=== PATIENT | female | born 1970 | race Caucasian/White ===

== ENCOUNTER 2023-04-29 07:20 | Outpatient (REF) | payer BC, SELFPAY ==
--- NOTE | ~2023-04-29 | MR_ITS ---
EXAMINATION: MRI OF THE LEFT FOOT WITHOUT CONTRAST CLINICAL INDICATION: Stress fracture 5th metatarsal. COMPARISON: None available. TECHNIQUE: Multiplanar MR imaging was obtained through the left foot without contrast material on a 1.5 Herminia magnet. FINDINGS: No fracture or malalignment. Marrow signal is normal. No periosteal or endosteal edema signal. Tarsometatarsal and MTP joints appear well preserved without appreciable cartilage loss. No joint effusions or synovitis. Lisfranc ligament appears intact. No other ligament tears. Tendons are intact without tendinosis or tenosynovitis. Musculature is normal in signal intensity without edema signal or atrophy. Plantar fascia is normal. No Mckeon's neuroma or adventitious bursitis. MR/MR foot LT wo con IMPRESSION: Normal MRI of the left foot. No evidence of stress reaction or stress fracture.
== END 2023-04-29 07:21 | disposition home or self-care (01) ==
LOC: HO.MRI 07:20
PROVIDERS: PCP Physician Assistant; Visit Provider Podiatrist
DX: M84.475A Pathological fracture, left foot, initial encounter for fracture (principal); S90.32XS Contusion of left foot, sequela
CPT/HCPCS: 73718

== ENCOUNTER → 2023-09-25 13:54 | Outpatient (BNVA) | payer OTHER, SELFPAY | PROVIDERS: PCP Physician Assistant; Visit Provider Physician Assistant | DX: Z13.89 Encounter for screening for other disorder (principal) | CPT/HCPCS: 73140; 99204 ==

== ENCOUNTER 2023-09-30 08:40 | Outpatient (REF) | payer OTHER, SELFPAY | END 2023-09-30 08:41 | disposition home or self-care (01) | LOC: HO.HOSX 08:40 | PROVIDERS: PCP Physician Assistant; Visit Provider Internal Medicine | DX: S62.661B Nondisplaced fracture of distal phalanx of left index finger, initial encounter for open fracture (principal); S69.92XA Unspecified injury of left wrist, hand and finger(s), initial encounter | CPT/HCPCS: 99202; 99213 ==

== ENCOUNTER 2023-09-30 12:39 | Outpatient (AMB) | payer OTHER, BC, SELFPAY ==
--- NOTE | 2023-09-30 12:47 | MHC.OFFVIS ---
Intake Vital Signs 09/30/23 12:51 Height 5 ft 2 in Weight 160 lb BMI 29.3 Intake Visit Reasons: TABLE TENDER SLUDGE-LT Index finger particle nail avulsion Intake Note: Nathaly 52 yr old left hand dominant female presents today for her left index finger injury. States on 09/25/23 while working she crushed her finger in the hinge part of a door. 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 Seen at work connection same day where xrays were taken and her finger was wrapped. States her nail is partially split. 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 She says she crushed her finger in the hinge side of a door. This is a work connections visit. She was seen at work connection the same day where her finger was dressed and Abx were prescribed. She complains of pain in her finger with any motion, and she says her finger is still bleeding as of this morning when her dressing was changed. She also says her nail is displaced, and particularly painful when she bumps it.. 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 Review of Systems Const All systems reviewed & are unremarkable except as noted in HPI and below Physical Exam Vital Signs: BMI result Body Mass Index 29.3 Const General: cooperative, healthy appearing and no acute distress Orientation/consciousness: patient oriented x3 HEENT Head: Yes normocephalic and Yes atraumatic Eyes EOM: EOMs intact bilaterally Resp Effort & Inspection: normal respiratory effort and able to speak in complete sentences Cardio Jugular venous distension: no JVD Skin General skin exam: turgor normal Rashes: no rashes Neuro General: patient oriented x3 Extrem Other: Evaluation of Left Upper Extremity: The patient is alert, oriented, and in no acute distress Neuro: Median, Ulnar, Radial nerves motor and sensory intact and sensation is normal to the tips of all digits Vascular: Cap refill brisk ROM: She had some stiffness after wearing a splint, but before leaving clinic she could actively flex and extend her index finger at the MCP & DIP joints She is wearing gel nails on all fingers, including the index finger Nail malpositioned, sitting superficial to the eponycheal fold and slightly oblique from what it should be Some swelling Some dried blood around nailbed Radiographs: 3 views of the left hand, with attention to the index finger, were taken and viewed by me today in clinic. They show an index finger distal phalanx fracture, non-displaced, through the tuft and best seen on the lateral view Psych Appearance: grossly normal Affect: normal affect Attitude: cooperative Assessment & Plan Assessment & Plan (1) Nondisplaced fracture of distal phalanx of left index finger, initial encounter for open fracture: Code(s): S62.661B - Nondisplaced fracture of distal phalanx of left index finger, initial encounter for open fracture (2) Injury of nail bed of finger of left hand: Code(s): S69.92XA - Unspecified injury of left wrist, hand and finger(s), initial encounter Plan Assessment & Plan: 1. Left index finger distal phalanx tuft fracture, open & non-displaced 2. Left index finger nailbed injury From a crush injury, DOI: 09/25/23 This is a work-related injury. I educated her about these conditions I discussed the importance of continuing her antibiotics as prescribed I discussed operative and non-operative treatment options and recommend surgery. The patient would like to proceed with surgery She will work on ROM exercises at home The risks and benefits of operative treatment were discussed with the patient and the patient wishes to proceed with surgery. These risks include, but are not limited to risk of damage to blood vessels, nerves, tendons, infection, recurrence, incomplete relief of preoperative symptoms, persistent pain, possible need for further surgery and the risks associated with regional blocks and anesthesia. The plan is to take the patient to the operating room sometime on 10/01/23 for the following procedures: 1. Left index finger removal of nail plate, under local 2. left index finger possible open fracture I&D, under local 3. left index finger nailbed repair, under local All of the preoperative paperwork including the consent was reviewed today. All the patient's questions were answered. The patient understands that they will be contacted by our neurological surgery teacher soon to schedule this procedure She denies Diabetes, blood thinners, asthma, heart, lung, kidney issues Scribed for Leydi Diaz MD by Dk Diaz, durable medical equipment technician, on 09/30/23 at 1:35 PM, EST. Orders: Orders XR hand LT min 3V Today M79.642 - Pain in left hand Coding Level of Care Code New Pt Level 4 (85810) Diagnoses Nondisplaced fracture of distal phalanx of left index finger, initial encounter for open fracture S62.661B Injury of nail bed of finger of left hand S69.92XA
[2023-09-30 12:51] VITALS: BMI 29.3
== END 2023-09-30 14:04 | disposition home or self-care (01) ==
PROVIDERS: PCP Physician Assistant; Visit Provider Orthopaedic Surgery
DX: S62.661B Nondisplaced fracture of distal phalanx of left index finger, initial encounter for open fracture (principal); S69.92XA Unspecified injury of left wrist, hand and finger(s), initial encounter
CPT/HCPCS: 99204

== ENCOUNTER 2023-10-01 11:01 | Day surgery (SDC) | payer OTHER, BC, SELFPAY ==
--- NOTE | 2023-10-01 10:58 | MHC.SHP ---
Pre-Procedural Eval Section A - 24 Hr Update-Section A only Date of Service: 10/01/23 The patient is an INPATIENT: No Changes since office visit: No Cold of Flu in the past 2 weeks, No New Medical Problems, No Changes in Medication and No Patient answered all questions The patient has been examined within 24 hours of the surgical procedure. The History & Physical has been completed within 30 days and I have reviewed it.: Yes Section B - Complete if H&P > 30 days Chief Complaint: Unspecified injury of left wrist, hand and finger( Allergies: Allergies Allergy/AdvReac Type Severity Reaction Status Date / Time sulfamethoxazole Allergy Intermediate hives Verified 09/30/23 12:52 [From Bactrim] trimethoprim [From Bactrim] Allergy Intermediate hives Verified 09/30/23 12:52 Plan I have reviewed the history and physical and performed a pertinent physical examination on my patient. No changes have occurred unless specified. Time Spent With Patient Time: Total time managing care of this patient today ____ minutes.
--- NOTE | 2023-10-01 10:59 | P.OP_ITS ---
Operative Note Operative Note Date of Service: 10/01/23 Narrative: Operative Note Preop diagnosis: 1. Left index finger open distal phalanx fracture 2. Left index finger nail bed injury Postop diagnosis: same Procedure: 1. Left index finger I&D open distal phalanx fracture 2. Left index finger removal of nail plate 3. Left index finger repair of nail bed Surgeon: Leydi Diaz MD Anesthesia: digital block using 1% lidocaine with epinephrine Findings: The distal half of the nail bed was sheared off of the distal phalanx, hanging by a small pedicle on the radial aspect of the nail bed. The proximal half of the nail bed including the germinal matrix appeared to be in good condition. The wound and fracture site appeared to be clean and without evidence of infection or debris. EBL: Less than 5 mL Tourniquet time: None Specimens: None Complications: None Disposition: Brought to recovery room in stable condition Plan: The patient can remove the dressing in 4-5 days and perform daily wound care. She knows not to immerse her finger. Continue oral antibiotics. Follow-up for 7-10 days for wound check . The sutures are absorbable, but can be removed if loose at 10-14 days. Radiographs are okay at 2nd postop. Indications: The patient is 52 years old, with a left index finger distal phalanx open fracture with a nail bed injury sustained after getting her finger caught in a door . The risks and benefits of operative treatment including but not limited to risk of damage to blood vessels, nerves, tendons, infection, persistent pain, persistent symptoms, recurrence or possible need for additional surgery were discussed with the patient and the patient wishes to proceed with surgery. Procedure: Once consent was obtained a digital block was performed in the preop area using a combination of 1% lidocaine with epinephrine. The patient was then brought back to the operating suite and placed on the operative table in supine position. A tourniquet was applied to the proximal aspect of the left upper extremity and the limb was prepped and draped in a standard surgical fashion. A small finger tourniquet was applied to the base of the finger and removed in fewer than 30 minutes. Once assured that we had a good block, the nail plate was removed by using a [place] elevator to separate the nail plate from the underlying nail bed. It was placed on the back table. This then allowed us to evaluate our nail bed injury and access to the open distal phalanx fracture. The distal half of the nail bed was sheared off from the bone hanging by a radial sided pedicle. This did expose the bone of the distal phalanx and our fracture. The wound and fracture appeared clean with no purulence or debris. An I&D was then performed on are open fracture. A small curette was used to debride the bone edges and the bone was copiously irrigated with normal saline. I then reapproximated the distal aspect of the nail bed sterile matrix. I repaired the nail bed using some 5 0 chromic suture. At this point the finger tourniquet was removed and hemostasis obtained with a brief period of local pressure. The wound was again copiously irrigated with normal saline. A small amount of antibiotic ointment was placed on the nail bed and a sterile dressing was applied. The patient appears to have tolerated the procedure well and with no complications. All digits were well vascularized at the conclusion of the case.
[2023-10-01 11:54] VITALS: BMI 29.3
[2023-10-01 13:46] VITALS: BP 146/79; PULSE 92; RESP 20; O2SAT 100
== END 2023-10-01 14:37 | disposition home or self-care (01) ==
PROVIDERS: PCP Physician Assistant; Visit Provider Orthopaedic Surgery
PROC: (CPT 11012; principal; 2023-10-01 12:30)
DX: S62.661B Nondisplaced fracture of distal phalanx of left index finger, initial encounter for open fracture (principal); S69.92XA Unspecified injury of left wrist, hand and finger(s), initial encounter; M79.89 Other specified soft tissue disorders; W23.1XXA Caught, crushed, jammed, or pinched between stationary objects, initial encounter; Y93.89 Activity, other specified; Y92.69 Other specified industrial and construction area as the place of occurrence of the external cause; Y99.0 Civilian activity done for income or pay
CPT/HCPCS: 11012; 11760; 11730; J0171

== ENCOUNTER → 2023-10-01 11:01 | Outpatient (BNV) | payer OTHER, BC, SELFPAY | PROVIDERS: PCP Physician Assistant; Visit Provider Orthopaedic Surgery | DX: S62.631B Displaced fracture of distal phalanx of left index finger, initial encounter for open fracture (principal); S60.122A Contusion of left index finger with damage to nail, initial encounter | CPT/HCPCS: 11730; 11760; 26765 ==

== ENCOUNTER 2023-10-13 10:23 | Outpatient (AMB) | payer BC, OTHER, SELFPAY ==
[2023-10-13 10:28] VITALS: BMI 29.3
--- NOTE | 2023-10-13 10:28 | A.OFFVIS_ITS ---
Intake Vital Signs 10/13/23 10:28 Height 5 ft 2 in Weight 160 lb BMI 29.3 Intake Visit Reasons: PO LT IF Nail plate removal 10/01/23 AR Intake Note: Nathaly 52 yr old female presents today for her PO visit for her left IF Nail plate removal 10/01/[address] Diaz. Dressing removed and in office. Patient states she has mild discomfort. 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 This was due to a crush injury while at work, DOI: 09/25/23. She says she crushed her finger in the hinge side of a door. This is a work connections visit. She says she is doing well, with mild pain & discomfort. 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 Dissolvable sutures are in place. The flap of tissue over the distal nailbed appears to be healing well & is pink She can make a fist and extend all her digits, with mild stiffness in the PIP joint Sensation is intact Cap refill is brisk Psych Appearance: grossly normal Affect: normal affect Attitude: cooperative Assessment & Plan Assessment & Plan (1) Nondisplaced fracture of distal phalanx of left index finger, initial encounter for open fracture: Code(s): S62.661B - Nondisplaced fracture of distal phalanx of left index finger, initial encounter for open fracture (2) Injury of nail bed of finger of left hand: Code(s): S69.92XA - Unspecified injury of left wrist, hand and finger(s), initial encounter Plan Assessment & Plan: 1. Left index finger distal phalanx tuft fracture, S/P I&D 2. Left index finger nailbed injury, S/P removal of nail plate & repair of nail bed DOS: 10/01/23 From a crush injury in a door, DOI: 09/25/23 This is a work-related injury. The patient appears to be doing well post-operatively I educated her about the post-operative course. She has been performing dressing changes at home & has dissolvable sutures in place I explained the signs and symptoms of infection, if the patient develops any new or worsening erythema, drainage, pain, or warmth they should contact the clinic or attend the ED. She will keep her finger covered with a dressing while at work for the next week. She can leave this uncovered at home as long as she keeps this away from her dog to remain clean. I discussed activity modifications, she is to lift nothing heavier than a cellphone for the next 2 weeks She will perform gentle ROM exercises at home She should avoid any underwater activities at this time She should gently massage about the incision site to reduce the risk of hypersensitivity She will follow up in 4-6 weeks for a ROM check. No X-rays unless she has pain Scribed for Leydi Diaz MD by Dk Diaz emergency medical technician, on 10/13/23 at 10:34 AM, EST. Coding Level of Care Code Global (93381) Diagnoses Nondisplaced fracture of distal phalanx of left index finger, initial encounter for open fracture S62.661B Injury of nail bed of finger of left hand S69.92XA
== END 2023-10-13 10:54 | disposition home or self-care (01) ==
PROVIDERS: PCP Physician Assistant; Visit Provider Orthopaedic Surgery
DX: S62.661B Nondisplaced fracture of distal phalanx of left index finger, initial encounter for open fracture (principal); S69.92XA Unspecified injury of left wrist, hand and finger(s), initial encounter
CPT/HCPCS: 99024

== ENCOUNTER → 2023-10-16 08:39 | Outpatient (BNVA) | payer OTHER, SELFPAY | PROVIDERS: PCP Physician Assistant; Visit Provider Internal Medicine | DX: Z13.89 Encounter for screening for other disorder (principal) | CPT/HCPCS: 99213 ==

== ENCOUNTER 2023-10-28 10:41 | Outpatient (AMB) | payer OTHER, SELFPAY ==
[2023-10-28 11:18] VITALS: BMI 29.3
--- NOTE | 2023-10-28 11:18 | A.OFFVIS_ITS ---
Intake Vital Signs 10/28/23 11:18 Height 5 ft 2 in Weight 160 lb BMI 29.3 Intake Visit Reasons: P/O Left IF Nail plate removal 10/01/23 AR Intake Note: Nathaly 52 yr old female presents today for her PO visit for her left IF Nail plate removal 10/01/[address] Diaz. States her dissolvable stitches are poking out and getting caught on her clothes. 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 This was due to a crush injury while at work, DOI: 09/25/23. She says she crushed her finger in the hinge side of a door. This is a work connections visit. She says she is doing well. She is concerned her absorbable nail bed sutures are pulling and causing her pain. She is wondering if we can remove her sutures. She says she continues to have numbness in the tip of her index finger. 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 Dissolvable sutures removed today The flap of tissue over the distal nailbed appears to be healing well & is pink She can make a fist and extend all her digits, with mild stiffness in the PIP joint Some numbness in the tip of her index finger Cap refill is brisk Psych Appearance: grossly normal Affect: normal affect Attitude: cooperative Assessment & Plan Assessment & Plan (1) Nondisplaced fracture of distal phalanx of left index finger, initial encounter for open fracture: Code(s): S62.661B - Nondisplaced fracture of distal phalanx of left index finger, initial encounter for open fracture (2) Injury of nail bed of finger of left hand: Code(s): S69.92XA - Unspecified injury of left wrist, hand and finger(s), initial encounter Plan Assessment & Plan: 1. Left index finger distal phalanx tuft fracture, S/P I&D 2. Left index finger nailbed injury, S/P removal of nail plate & repair of nail bed DOS: 10/01/23 From a crush injury in a door, DOI: 09/25/23 This is a work-related injury. The patient appears to be doing well post-operatively I educated her about the post-operative course. She has been performing dressing changes at home. I discussed activity modifications, she is to lift nothing heavier than a cellphone for the next 2 weeks She will perform gentle ROM exercises at home She should avoid any underwater activities at this time She should gently massage about the incision site to reduce the risk of hypersensitivity She will follow up in 3-4 weeks for a wound ROM check. I may get x-rays if we do not have good healing over the tip of the finger. Scribed for Leydi Diaz MD by Dk Diaz, er medical technician, on 10/28/23 at 11:20 AM, EST. Coding Level of Care Code Global (59086) Diagnoses Nondisplaced fracture of distal phalanx of left index finger, initial encounter for open fracture S62.661B Injury of nail bed of finger of left hand S69.92XA
== END 2023-10-28 11:32 | disposition home or self-care (01) ==
PROVIDERS: PCP Physician Assistant; Visit Provider Orthopaedic Surgery
DX: S62.661B Nondisplaced fracture of distal phalanx of left index finger, initial encounter for open fracture (principal); S69.92XA Unspecified injury of left wrist, hand and finger(s), initial encounter
CPT/HCPCS: 99024

== ENCOUNTER → 2023-10-28 10:54 | Outpatient (BNVA) | payer OTHER, SELFPAY | PROVIDERS: PCP Physician Assistant; Visit Provider Orthopaedic Surgery | DX: S62.661D Nondisplaced fracture of distal phalanx of left index finger, subsequent encounter for fracture with routine healing (principal); S69.92XD Unspecified injury of left wrist, hand and finger(s), subsequent encounter | CPT/HCPCS: 99212 ==

== ENCOUNTER 2023-11-03 20:15 | Emergency (ER) | payer BC, SELFPAY ==
--- NOTE | 2023-11-03 | ECG_ITS ---
Test Reason : TACHYCARDIA Blood Pressure : / mmHG Vent. Rate : 136 BPM Atrial Rate : 136 BPM P-R Int : 124 ms QRS Dur : 082 ms QT Int : 288 ms P-R-T Axes : 052 031 046 degrees QTc Int : 433 ms Sinus tachycardia Possible Left atrial enlargement Low voltage QRS Borderline ECG No previous ECGs available Referred By: Generic ED Physician Electronically Signed By:Isauro Pina
--- NOTE | ~2023-11-03 | XR_ITS ---
EXAMINATION: XR CHEST CLINICAL INFORMATION: Cough. Tachycardia. COMPARISON: None available. TECHNIQUE: Frontal view of the chest was obtained. FINDINGS: Heart size is normal. The lungs are clear. No pleural effusion. No pneumothorax. No acute osseous abnormality. XR/XR chest 1V IMPRESSION: No acute cardiopulmonary disease.
[2023-11-03 20:24] VITALS: BP 157/94; PULSE 145; RESP 18; TEMP 36.7; O2SAT 94; BMI 29.3
[2023-11-03 20:48] LABS: MANUAL DIFF FLAG NO
[2023-11-03 20:57] LABS: Basophils Percent Auto 0.2 % (0-2); Eosinophils Absolute Auto 0.1 X10*3/uL (0.0-0.4); Eosinophils Percent Auto 1.9 % (0-4); Hematocrit 38.4 % (37.0-47.0); Imm Gran Abs Auto 0.01 X10*3/uL (0.00-0.03); Imm Gran Pct Auto 0.2 % (0.0-0.4); Lymphocytes Absolute Auto 1.5 X10*3/uL (1.2-4.9); Lymphocytes Percent Auto 24.3 % (20-40); Mean Corpuscular HGB Conc 36.5 g/dl (31.0-35.0); Mean Corpuscular Hemoglobin 31.8 pg (27.0-33.0); Mean Corpuscular Volume 87.3 fL (80.0-98.0); Mean Platelet Volume 10.4 fL (9.4-12.3); Monocytes Absolute Auto 0.9 X10*3/uL (0.1-1.2); Monocytes Percent Auto 13.7 % (2-11); Neutrophils Absolute Auto 3.7 x10*3/uL (2.0-8.3); Neutrophils Percent Auto 59.7 % (45-73); Platelet Count 252 X10*3/uL (160-400); Red Cell Distribution Width 12.6 % (11.0-16.0); White Blood Count 6.3 X10*3/uL (4.8-10.8)
[2023-11-03 21:02] LABS: Alanine Aminotransferase 17 U/L (0-31); Albumin Level 3.5 g/dL (3.5-5.0); Alkaline Phosphatase 54 U/L (39-117); Anion Gap 12 (12-20); Aspartate Amino Transferase 16 U/L (5-31); Bilirubin Total 0.7 mg/dL (0.0-1.0); Blood Urea Nitrogen 10 mg/dL (9-16); Calcium 8.8 mg/dL (8.4-10.2); Carbon Dioxide 25 mmol/L (22-29); Chloride 107 mmol/L (96-108); Creatinine Clr Calc Pharmacy 86.9; Estimated Glomerular Filt Rate > 60; Glucose Random 126 mg/dL (60-115); Potassium 3.3 mmol/L (3.3-5.1); Sodium 141 mmol/L (135-145); Total Protein 6.9 g/dL (6.5-8.0)
[2023-11-03 21:10] LABS: Troponin-I High Sensitivity < 2.7 ng/L (<3.5-17.0)
[2023-11-03 21:16] LABS: Influenza A PCR POSITIVE (Negative); Influenza B PCR NEGATIVE (Negative); Resp Syncy Virus RNA Qual PCR NEGATIVE (Negative); SARS COV2 PCR INHOUSE NEGATIVE (Negative)
[2023-11-03] MEDS: Ibuprofen 400 MG TABLET PO (21:16)
[2023-11-03] MEDS: Acetaminophen 325 MG TABLET 975 MG PO (21:16)
[2023-11-03 21:19] VITALS: PULSE 129; PULSE 130; RESP 22; O2SAT 96
--- NOTE | 2023-11-03 21:21 | PC.NURSE ---
pt resting on stretcher, respirations even and mildly labored (RR 22), pt is otherwise resting in no apparent distress. Sinus tach on monitor in 120s-130s. Pt does endorse mild palpitations. Pt also endorses mild shortness of breath upon exertion. Pt is otherwise stable, ambulatory, alert and oriented x4
--- NOTE | 2023-11-03 21:29 | ED.URI ---
HPI - URI/Sore Throat General Chief Complaint: Upper Respiratory Symptoms Stated Complaint: flu? heart rate 160 Time Seen by Provider: 11/03/23 21:05 Source: patient Mode of arrival: ambulatory History of Present Illness HPI Narrative: 52-year-old female, prior smoker, presents with flu-like symptoms since Thursday with high fevers, shortness of breath on exertion, dry cough, palpitations and noticing that she had a racing heart earlier today and that her heart rate was registering 150s to 160s on her smart watch. Patient reports low-grade fevers today. Related Data Home Medications Medication Instructions Recorded Confirmed lisinopril 5 mg tablet 5 mg PO DAILY 09/30/23 10/01/23 lorazepam 0.5 mg tablet 0.5 mg PO DAILY PRN Anxiety 09/30/23 10/01/23 Allergies Allergy/AdvReac Type Severity Reaction Status Date / Time sulfamethoxazole Allergy Intermediate hives Verified 11/03/23 20:35 [From Bactrim] trimethoprim [From Bactrim] Allergy Intermediate hives Verified 11/03/23 20:35 Review of Systems Review of Systems: Pertinent positives and negatives as stated in HPI PMFSH Past Medical History Source: nursing notes reviewed Medical History Lipoma HTN (hypertension) Surgical History History of appendectomy H/O adenoidectomy Hx of tonsillectomy Social History Social History Smoked in Last 30 Days: No Use of substances other than those prescribed or required for medical reasons: No Patient : No 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 GENERAL: Well developed, well nourished, in no acute distress. HEAD: Normocephalic/atraumatic EYES: PERRLA, EOMI EARS: Ext canals without abnormality, TMs non-bulging and non-erythematous NOSE: Nares patent bilateral OROPHARYNX: no oral lesions noted, posterior pharynx clear and non-erythematous without noted tonsillar enlargement/erythema/exudates NECK: Supple, no adenopathy LUNGS: Normal breath sounds. No adventitious sounds or accessory muscle use. SpO2<96> CARDIOVASCULAR: Regular rate and rhythm without noted murmurs ABDOMEN: Soft, non-tender, non-distended with bowel sounds. MUSCULOSKELETAL: No tenderness, deformities, or effusions noted on gross inspection. EXTREMITIES: No cyanosis, clubbing or edema. SKIN: Inspection of the skin reveals no rashes NEUROLOGIC: Alert and oriented x 4. Strength and sensation to light touch were grossly intact x 4. Medications Administered Discontinued Medications Generic Name Dose Route Start Last Admin Trade Name Freq PRN Reason Stop Dose Admin Acetaminophen 975 mg 11/03/23 21:07 11/03/23 21:16 Acetaminophen 325 Mg Tablet PO 11/03/23 21:08 975 mg ONCE ONE Administration Ibuprofen 400 mg 11/03/23 21:07 11/03/23 21:16 Ibuprofen 400 Mg Tablet PO 11/03/23 21:08 400 mg ONCE ONE Administration Medical Decision Making Medical Decision Making [facility] Narrative: 52-year-old female with history and clinical presentation, DDX: Viral syndrome, suspect COVID or influenza, suspect that tachycardic heart rate is more related to components of poor oral intake and elevated temperature. I reviewed all investigations and hematologic indices are negative for leukocytosis/left shift/anemia/thrombocytopenia. Chemistry indices are negative for SIERRA/electrolyte/liver enzyme derangements, high sensitivity troponin is undetectable and there is no indication of ischemic changes. Viral testing positive for influenza and otherwise negative for RSV/COVID-19. Chest x-ray is negative for infiltrate or venous congestion otherwise my interpretation is in agreement with radiology's impression. All results and findings discussed with the patient at bedside, she was also offered combination Tylenol/ibuprofen for suspected underlying contribution of fever to the heart rate. Differential Diagnosis Differential Diagnoses: The differential diagnosis associated with the presentation includes Please see the discussion above Admission/Observation Consideration of admission/observation: Escalation of care including admission/observation considered Please see the discussion above Lab Data [facility] Lab Attestation statement: I reviewed the patient's lab results. Please see the discussion above 11/03/23 20:43 11/03/23 20:43 Labs: Lab Results 11/03/23 11/03/23 11/03/23 Range/Units 20:34 20:43 20:44 WBC 6.3 (4.8-10.8) X10*3/uL RBC 4.40 (4.20-5.50) X10*6/uL Hgb 14.0 (12.0-16.0) g/dl Hct 38.4 (37.0-47.0) % MCV 87.3 (80.0-98.0) fL MCH 31.8 (27.0-33.0) pg MCHC 36.5 H (31.0-35.0) g/dl RDW 12.6 (11.0-16.0) % Plt Count 252 (160-400) X10*3/uL MPV 10.4 (9.4-12.3) fL Immature Gran % (Auto) 0.2 (0.0-0.4) % Neut % (Auto) 59.7 (45-73) % Lymph % (Auto) 24.3 (20-40) % [place] % (Auto) 13.7 H (2-11) % Eos % (Auto) 1.9 (0-4) % Baso % (Auto) 0.2 (0-2) % Lymph # (Auto) 1.5 (1.2-4.9) X10*3/uL [place] # (Auto) 0.9 (0.1-1.2) X10*3/uL Eos # (Auto) 0.1 (0.0-0.4) X10*3/uL Baso # (Auto) 0.0 (0.0-0.2) X10*3/uL Abs Immat Gran (auto) 0.01 (0.00-0.03) X10*3/uL Absolute Neuts (auto) 3.7 (2.0-8.3) x10*3/uL Absolute Nucleated RBC 0.000 (0.0-0.012) X10*3/uL Nucleated RBC % (auto) 0.0 (0.0-0.2) /100WBC Sodium 141 (135-145) mmol/L Potassium 3.3 (3.3-5.1) mmol/L Chloride 107 (96-108) mmol/L Carbon Dioxide 25 (22-29) mmol/L Anion Gap 12 (12-20) BUN 10 (9-16) mg/dL Creatinine 0.69 (0.5-1.4) mg/dL Estim Creat Clear Calc 86.9 Estimated GFR > 60 Random Glucose 126 H (60-115) mg/dL Calcium 8.8 (8.4-10.2) mg/dL Total Bilirubin 0.7 (0.0-1.0) mg/dL AST 16 (5-31) U/L ALT 17 (0-31) U/L Alkaline Phosphatase 54 (39-117) U/L Troponin I High Sens < 2.7 (<3.5-17.0) ng/L Total Protein 6.9 (6.5-8.0) g/dL Albumin 3.5 (3.5-5.0) g/dL Influenza Type A (PCR) POSITIVE A (Negative) Influenza Type B (PCR) NEGATIVE (Negative) RSV RNA Qual (PCR) NEGATIVE (Negative) SARS-CoV-2 RNA (RT-PCR) NEGATIVE (Negative) Independent Interpretation I performed an independent interpretation of an: EKG Interpretation: Sinus tachycardia, HR-136, no STEMI, CA/QRS/QTC is within normal limits. Radiology Impression Discussion of test interpretation with radiology: I have reviewed the radiologist's reading. Radiologist Impression: Please see the discussion above External Record Review External record reviewed: Outpatient record, Prior outpatient labs and Prior outpatient radiology Chronic Conditions Patient?s care impacted by: Hypertension Critical Care Time Critical Care Time Critical Care Time: Yes Total Critical Care Time: 30 Attestation: I personally attest to this time spent taking care of the patient. Discharge Plan Discharge Clinical Impression: Viral infection, Influenza A Instructions: Viral Syndrome (ED), Influenza (DC) Additional Instructions: 1. Resume all home medications as prescribed. I recommend [id number] Tylenol/ibuprofen as needed body aches/headaches/temperatures greater than 100.4. Continue to drink plenty of water. 2. I recommend that you avoid decongestants as these have medications which will increase your heart rate. Sleeping in semi elevated position to reduce nighttime coughing. 3. Follow-up with your primary care doctor the next 2-3 days. Return to the ER for any worsening symptoms. Prescriptions: No Action lisinopril 5 mg tablet 5 mg PO DAILY lorazepam 0.5 mg tablet 0.5 mg PO DAILY PRN (Reason: Anxiety) Referrals: Sophia Tobias PA-C [Primary Care Provider] -
[2023-11-03 22:02] VITALS: BP 134/82; PULSE 119; RESP 18; TEMP 37.2; O2SAT 99
== END 2023-11-03 22:05 | disposition home or self-care (01) ==
PROVIDERS: Emergency Provider Student in an Organized Health Care Education/Training Program; PCP Physician Assistant
DX: J10.1 Influenza due to other identified influenza virus with other respiratory manifestations (principal); B34.9 Viral infection, unspecified; R00.0 Tachycardia, unspecified; R50.9 Fever, unspecified; R06.02 Shortness of breath; Z11.52 Encounter for screening for COVID-19; Z20.822 Contact with and (suspected) exposure to COVID-19; Z79.899 Other long term (current) drug therapy
CPT/HCPCS: 0241U; 36415; 71045; 80053; 84484; 85025; 93005; 99283; 99285

== ENCOUNTER → 2023-11-03 20:22 | Outpatient (BNV) | payer BC, SELFPAY | PROVIDERS: Emergency Provider Student in an Organized Health Care Education/Training Program; PCP Physician Assistant; Visit Provider Internal Medicine Cardiovascular Disease | DX: R00.0 Tachycardia, unspecified (principal) | CPT/HCPCS: 93010 ==

== ENCOUNTER 2023-11-17 14:37 | Outpatient (AMB) | payer BC, OTHER, SELFPAY ==
--- NOTE | 2023-11-17 14:39 | A.OFFVIS_ITS ---
Intake Vital Signs 11/17/23 14:40 Height 5 ft 2 in Weight 160 lb BMI 29.3 Intake Visit Reasons: PO - Left IF Nail plate removal 10/01/23 AR Intake Note: Nathaly 52 yr old female presents today for her PO visit for her Left IF Nail plate removal ROM and wound check from 10/01/23 AR. Patient states she is doing better but still has numbness from her DIP to tip of finger. 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 This was due to a crush injury while at work, DOI: 09/25/23. She says she crushed her finger in the hinge side of a door. This is a work connections visit. She says she is doing well and is pleased with the appearance of her thumb. She says she continues to have some numbness in the tip of her index finger.. 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 Her nail appears to be growing in well Some numbness in the tip of her index finger Cap refill is brisk Psych Appearance: grossly normal Affect: normal affect Attitude: cooperative Assessment & Plan Assessment & Plan (1) Nondisplaced fracture of distal phalanx of left index finger, initial encounter for open fracture: Code(s): S62.661B - Nondisplaced fracture of distal phalanx of left index finger, initial encounter for open fracture (2) Injury of nail bed of finger of left hand: Code(s): S69.92XA - Unspecified injury of left wrist, hand and finger(s), initial encounter Plan Assessment & Plan: 1. Left index finger open distal phalanx tuft fracture, S/P I&D 2. Left index finger nailbed injury, S/P removal of nail plate & repair of nail bed DOS: 10/01/23 From a crush injury in a door, DOI: 09/25/23 This is a work-related injury. The patient appears to be doing well post-operatively She may now advance all activities as tolerated. She will continue to perform gentle ROM exercises at home She should gently massage about the incision site to reduce the risk of hypersensitivity She is very pleased with the results of her surgery. She will follow up prn Scribed for Leydi Diaz MD by Dk Diaz, rn medical surgical, on 11/17/23 at 3:00 PM, EST. Coding Level of Care Code Global (72798) Diagnoses Nondisplaced fracture of distal phalanx of left index finger, initial encounter for open fracture S62.661B Injury of nail bed of finger of left hand S69.92XA
[2023-11-17 14:40] VITALS: BMI 29.3
== END 2023-11-17 15:17 | disposition home or self-care (01) ==
PROVIDERS: PCP Physician Assistant; Visit Provider Orthopaedic Surgery
DX: S62.661B Nondisplaced fracture of distal phalanx of left index finger, initial encounter for open fracture (principal); S69.92XA Unspecified injury of left wrist, hand and finger(s), initial encounter
CPT/HCPCS: 99024

== ENCOUNTER 2024-01-14 08:19 | Outpatient (AMB) | payer BC, SELFPAY ==
--- NOTE | 2024-01-14 08:23 | A.OFFPC_ITS ---
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 Needs referral to account contact associate. Holter monitor done on 12/15/23. Echo in March. Allergies sulfamethoxazole [From Bactrim] Allergy (Intermediate, Verified 11/17/23 14:46) hives trimethoprim [From Bactrim] Allergy (Intermediate, Verified 11/17/23 14:46) hives Medication List - Last Reconciled 01/14/24 by Sophia Tobias PA-C lorazepam 0.5 mg PO DAILY PRN metoprolol succinate ER 12.5 mg PO DAILY Tobacco use date assessed: 01/14/24 Dental Screening Dental Screen Date: 01/14/24 Did you have a dental visit in the last 12 months?: Yes Did you have a dental problem in the last 6 months where you did not have access to dental care?: No Was dental information given to patient?: Patient has dentist HPI encoding clerk/ heart palpitation cardiac doc see pcp first HPI Details Patient is a 53-year-old female who presents today to reestablish care/follow up. She was seen by myself on 10/20/2023 for a physical. She has a significant past medical history of an angiolipoma of kidney, simple cyst of kidney, anxiety, hyperlipidemia, hypertension, palpitations, SVT. CV: Blood pressure today in the office is 104/72. Her pulse is 129. She has been experiencing palpitations for the last few months. When I saw her for her physical I did order a Holter, echo and labs. She was able to complete her Holter on 12/14 and had a follow up with my colleague on 01/03 and did have 1 5 beat run of PSVT. She was started on 12.5 mg of metoprolol. It was recommended that she follow with cardiology. She states that she is constantly experiencing a high heart rate at all times of day and night. She states it is making her nervous. She feels a little shaky and she has lost weight because she is under increased stress with this. She states it is flaring her anxiety a little. She has a decreased appetite and states she lost 20 lbs in the last few months with this. She thinks it is related to stress. She denies any n/v/d. No abdominal pain or bloating. UTD on health maintenance. She has cut out caffeine. She has made small diet changes to see if it could help with the SVT and it hasn't. She does wonder if it is related to being perimenopausal. She does sometimes feel short of breath with exertion in the SVT. States that her heart rate goes up without doing much. No dizziness or diaphoresis. No chest pain. Her echo is scheduled for March. HEENT: She does complain today of ongoing sinusitis. This has been going on since she had the flu in October. She states that she has had this intermittent sinus pain and pressure. She was treated a couple times for a sinus infection and it did seem like it initially cleared it but then the symptoms would return. She does currently have slight sinus pressure but no pain. She reports constant postnasal drip and a cough. She states that she has had this cough on and off since October. States it almost feels like she has to clear her throat. It also started around the same time that she started lisinopril for her blood pressure. Denies any wheezing. At times feels short of breath with the SVT. Uro: She has a significant past medical history of an angiolipoma of her kidney and a simple cyst. Scheduled with Urology on 01/24. Psych: Currently a little exacerbated. Generally it is well-controlled with her lifestyle and every couple years she will get a prescription of lorazepam to use as needed. No SI/HI. 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 They have 2 adult children. Colonoscopy: Up-to-date, 2 polyps in 2021, due in 2026 Mammo: December 2023 Pap: [facility]. Sees Gelaence Gabriel. She is perimenopausal. [facility] Medical History (Updated 01/14/24 @ 09:40 by Sophia Tobias PA-C) Nondisplaced fracture of distal phalanx of left index finger, initial encounter for open fracture Injury of nail bed of finger of left hand PSVT (paroxysmal supraventricular tachycardia) Abnormal skin growth Eczema Arthritis Hypercholesteremia Sinusitis Simple cyst of kidney Generalized anxiety disorder Angiolipoma Lipoma HTN (hypertension) Surgical History History of appendectomy H/O adenoidectomy Hx of tonsillectomy Family History (Updated 01/14/24 @ 08:54 by Lianet Jeter CMA) Father Arthritis HTN (hypertension) Mother Hypercholesteremia Brother Hypercholesteremia HTN (hypertension) Sister Heart disease Multiple sclerosis Maternal Grandmother Breast cancer Diabetes Heart disease Maternal Grandfather Diabetes Hypercholesteremia Alcoholism Other FH: mental illness Social History Housing: House Patient Tobacco Use Status: Former Tobacco user Cigarette Packs Per Day: 0.5 Years Smoked: 20 e-Cigarette/Vaping Use: Never Used Second Hand Smoke Exposure: Yes (past) service: No Current occupational status: employed 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 1. Little interest or pleasure in doing things: not at all 2. Feeling down, depressed, or hopeless: not at all 3. Trouble falling or staying asleep, or sleeping too much: more than half the days 4. Feeling tired or having little energy: more than half the days 5. Poor appetite or overeating: several days 6. Feeling bad about yourself - or that you are a failure or have let yourself or your family down: not at all 7. Trouble concentrating on things, such as reading the newspaper or watching television: not at all 8. Moving or speaking so slowly that other people could have noticed. Or the opposite - being so fidgety or restless that you have been moving around a lot more than usual: several days 9. Thoughts that you would be better off or of hurting yourself in some way: not at all Total score: 6 Depression Screening Interpretation: Positive (stable) Depression Screening Follow-up: Existing condition and Declines treatment Depression Screening Done: Yes 80661 - PHQ-9 Billing: Yes Source: Developed by Drs. Matias Angeles, Latisha Jarvis, Jay Lubin and colleagues, with an educational dwayne from [employer]. Thrive Questionnaire Date Thrive assessed: 01/14/24 I am a: Patient What is your living situation today?: I have a steady place to live Within the past 12 months, did the food you bought not last and you didn't have the money to get more?: Never true Within the past 12 months, did you worry whether your food would run out before you got money to buy more?: Never true Do you have trouble paying for medicines?: No Do you have trouble getting transportation to medical appointments?: No Do you have trouble paying your heating and electricity bill?: No Do you have trouble taking care of your child, family member or friend?: No Do you have trouble with day-to-day activities such as bathing, preparing meals, shopping, managing finances, etc.?: No Are you currently unemployed and looking for a job?: No Are you interested in more education?: No Please select the resources that you would like help with: None THRIVE Score: 0 AUDIT C Alcohol Use Questionnaire (AUDIT-C) 1. How often do you have a drink containing alcohol?: 4 or more times a week 2. How many drinks containing alcohol do you have on a typical day when you are drinking?: 1 or 2 3. How often do you have six or more drinks on one occasion?: Never Total Score: 4 SUSANA-7 AMB Questionnaire SUSANA-7 Date SUSANA - 7 assessed: 01/14/24 Feeling nervous, anxious, or on edge: 2 = More than half the days Not being able to stop or control worryin = More than half the days Worrying too much about different things: 2 = More than half the days Trouble relaxin = More than half the days Being so restless that it is hard to sit still: 2 = More than half the days Becoming easily annoyed or irritable: 0 = Not at all Feeling afraid as if something awful might happen: 2 = More than half the days Total SUSANA-7 score (0-4 normal; 5-9 mild; 10-14 moderate; 15-21 severe): 12 Source: Developed by Drs. Matias Angeles, Latisha Jarvis, Jay Lubin and colleagues, with an educational dwayne from [employer]. SUSANA-7 Assessment Billing SUSANA-7 Assessment Tool: SUSANA-7 Assessment 04631 Physical exam (Primary Care) Vital Signs: Last Vital Signs Temp 97.5 F 01/14/24 08:29 Pulse 129 H 01/14/24 08:29 Resp 16 01/14/24 08:29 BP 104/72 01/14/24 08:29 Pulse Ox 98 01/14/24 08:29 Oxygen Delivery Method Room Air 01/14/24 08:29 BMI result Body Mass Index 27.8 Tobacco/Smoking Status: Tobacco use Status Tobacco use date assessed 01/14/24 01/14/24 08:33 Patient Tobacco Use Status Former Tobacco user 01/14/24 08:33 e-Cigarette/Vaping Use Never Used 01/14/24 08:33 Depression Screening Interpretation: Positive (stable) Depression Screening Follow-up: Existing condition and Declines treatment Const Orientation/consciousness: patient oriented x3 HENMT Ears: hearing grossly normal bilaterally and TM's normal bilaterally General nose exam: Abnormal mucous membranes and turbinates present boggy and Nasal discharge present clear Face and sinus: Yes sinus tenderness (maxillary) Throat: Yes posterior oropharynx normal Neck Thyroid: Thyroid normal Lymphatic: no lymphadenopathy noted Resp Auscultation: clear to auscultation bilaterally Cardio Rate: regular rate Rhythm: regular rhythm Heart sounds: S1 normal heart sound present and S2 normal heart sound present GI Inspection: Yes normal to inspection Palpation (GI): Soft to palpation and Other GI palpation findings present (nontender, no cva tenderness) Auscultation: normoactive bowel sounds Skin General skin exam: no rashes or lesions noted Neuro General: patient oriented x3, gait normal and no focal motor deficits Results Reviewed Results Reviewed: Laboratory Tests 11/03/23 11/03/23 20:43 20:44 WBC 6.3 RBC 4.40 Hgb 14.0 Hct 38.4 Plt Count 252 Sodium 141 Potassium 3.3 Chloride 107 Carbon Dioxide 25 Anion Gap 12 BUN 10 Creatinine 0.69 Estim Creat Clear Calc 86.9 Estimated GFR > 60 Random Glucose 126 H Calcium 8.8 Total Bilirubin 0.7 AST 16 ALT 17 Alkaline Phosphatase 54 Troponin I High Sens < 2.7 Total Protein 6.9 Albumin 3.5 FINDINGS: Heart size is normal. The lungs are clear. No pleural effusion. No pneumothorax. No acute osseous abnormality. XR/XR chest 1V IMPRESSION: No acute cardiopulmonary disease. Holter 12/15/2023: Impression: Predominant rhythm is normal sinus rhythm. The average heart rate is 117 beats per minute. The minimum heart rate is 83 bpm The maximum heart rate is 160 beats per minute There were rare PACs and 1 5 beat run of PSVT There were no PVCs or ventricular arrhythmias. There were no significant pauses or high-degree AV block. Several patient's symptom markers correlated with sinus tachycardia and [address] with atrial couplet. Assessment and Plan Assessment & Plan (1) PSVT (paroxysmal supraventricular tachycardia): Code(s): I47.10 - Supraventricular tachycardia, unspecified Plan: referral to EP. D/c lisinopril. increased metoprolol to 25 mg. (2) HTN (hypertension): Code(s): I10 - Essential (primary) hypertension Qualifiers: Hypertension type: primary hypertension Qualified Code(s): I10 - Essential (primary) hypertension Plan: d/c lisinopril. increased metoprolol (3) Cough: Code(s): R05.9 - Cough, unspecified Qualifiers: Cough type: subacute Qualified Code(s): R05.2 - Subacute cough Plan: ? related to lisinopril or pnd. cxr ordered (4) Chronic sinusitis: Code(s): J32.9 - Chronic sinusitis, unspecified Qualifiers: Sinusitis location: maxillary Qualified Code(s): J32.0 - Chronic maxillary sinusitis Plan: xyzal and nasacort ordered. discussed possible referral to allergy and immunology. (5) Weight loss, unintentional: Code(s): R63.4 - Abnormal weight loss Plan: down 20 lbs, no additional sx. labs and cxr ordered today. 2 week follow up. UTD on health maintenance (6) Abnormal skin growth: Code(s): D49.2 - Neoplasm of unspecified behavior of bone, soft tissue, and skin Plan: referral to [facility]. f/u if anything worsens or changes (7) Generalized anxiety disorder: Code(s): F41.1 - Generalized anxiety disorder Plan: a bit exacerbated with the psvt/tachycardia. does not want treatment Orders: Orders Complete Blood Count Auto Diff Today I47.10 - Supraventricular tachycardia, unspecified, R63.4 - Abnormal weight loss Comprehensive Met. Panel Today I47.10 - Supraventricular tachycardia, unspecified, R63.4 - Abnormal weight loss TSH reflex Free T4 Today I47.10 - Supraventricular tachycardia, unspecified, R63.4 - Abnormal weight loss Vitamin B12 and Folate Today I47.10 - Supraventricular tachycardia, unspecified, R63.4 - Abnormal weight loss Lyme IgG/IgM w/reflex to WB Today I47.10 - Supraventricular tachycardia, unspecified, R63.4 - Abnormal weight loss XR chest 2V Today J32.9 - Chronic sinusitis, unspecified, R05.9 - Cough, unspecified, R63.4 - Abnormal weight loss Referrals Cardiac Electrophysiology Referral I47.10 - Supraventricular tachycardia, unspecified Dermatology Referral D49.2 - Neoplasm of unspecified behavior of bone, soft tissue, and skin Medications: New levocetirizine (Xyzal) 5 mg PO DAILY 90 tabs 1RF triamcinolone acetonide (Nasacort Allergy) administer into each nostril 2 sprays intranasal DAILY 16.9 mL 1RF metoprolol succinate ER 25 mg PO DAILY 90 tabs 1RF Coding Level of Care Code Est Pt Level 4 (58534) Complex EM visit Add On G2211 Diagnoses PSVT (paroxysmal supraventricular tachycardia) I47.10 Primary hypertension I10 Hypertension type: primary hypertension Subacute cough R05.2 Cough type: subacute Chronic maxillary sinusitis J32.0 Sinusitis location: maxillary Weight loss, unintentional R63.4 Abnormal skin growth D49.2 Generalized anxiety disorder F41.1 Additional Codes SUSANA-7 Assessment Billing - SUSANA-7 Assessment Tool: SUSANA-7 Assessment [id number] ([id number])
[2024-01-14 08:29] VITALS: BP 104/72; PULSE 129; RESP 16; TEMP 36.4; O2SAT 98; BMI 27.8
== END 2024-01-14 09:21 | disposition home or self-care (01) ==
PROVIDERS: PCP Physician Assistant; Visit Provider Physician Assistant
DX: I47.10 Supraventricular tachycardia, unspecified (principal); I10 Essential (primary) hypertension; R05.2 Subacute cough; J32.0 Chronic maxillary sinusitis; R63.4 Abnormal weight loss; D49.2 Neoplasm of unspecified behavior of bone, soft tissue, and skin; F41.1 Generalized anxiety disorder
CPT/HCPCS: 99214

== ENCOUNTER 2024-01-15 11:29 | Outpatient (REF) | payer BC, SELFPAY ==
--- NOTE | ~2024-01-15 | XR_ITS ---
EXAMINATION: XR CHEST CLINICAL INFORMATION: Abnormal weight loss COMPARISON: Previous chest x-ray October 2023 TECHNIQUE: 2 views of the chest were obtained. FINDINGS: The cardiac and mediastinal contours are normal. The lungs are clear. No pleural effusion or pneumothorax. Degenerative changes of the spine. XR/XR chest 2V IMPRESSION: No evidence for acute disease in the chest.
== END 2024-01-15 11:30 | disposition home or self-care (01) ==
LOC: HO.XRAY 11:29
PROVIDERS: PCP Physician Assistant; Visit Provider Physician Assistant
DX: R63.4 Abnormal weight loss (principal); R05.9 Cough, unspecified; J32.9 Chronic sinusitis, unspecified
CPT/HCPCS: 71046

== ENCOUNTER 2024-01-18 11:36 | Outpatient (REF) | payer BC, SELFPAY ==
[2024-01-18 11:47] LABS: MANUAL DIFF FLAG NO
[2024-01-18 11:56] LABS: Basophils Percent Auto 0.3 % (0-2); Eosinophils Absolute Auto 0.1 X10*3/uL (0.0-0.4); Eosinophils Percent Auto 2.1 % (0-4); Hemoglobin 14.2 g/dl (12.0-16.0); Imm Gran Abs Auto 0.01 X10*3/uL (0.00-0.03); Imm Gran Pct Auto 0.2 % (0.0-0.4); Lymphocytes Absolute Auto 2.1 X10*3/uL (1.2-4.9); Lymphocytes Percent Auto 32.3 % (20-40); Mean Corpuscular HGB Conc 35.5 g/dl (31.0-35.0); Mean Corpuscular Hemoglobin 29.5 pg (27.0-33.0); Mean Corpuscular Volume 83.2 fL (80.0-98.0); Monocytes Absolute Auto 0.7 X10*3/uL (0.1-1.2); Monocytes Percent Auto 9.9 % (2-11); Neutrophils Absolute Auto 3.6 x10*3/uL (2.0-8.3); Neutrophils Percent Auto 55.2 % (45-73); Platelet Count 332 X10*3/uL (160-400); Red Blood Count 4.81 X10*6/uL (4.20-5.50); Red Cell Distribution Width 14.3 % (11.0-16.0); White Blood Count 6.5 X10*3/uL (4.8-10.8)
[2024-01-18 12:56] LABS: Alanine Aminotransferase 26 U/L (0-31); Albumin Level 3.9 g/dL (3.5-5.0); Alkaline Phosphatase 66 U/L (39-117); Anion Gap 12 (12-20); Aspartate Amino Transferase 21 U/L (5-31); Bilirubin Total 1.5 mg/dL (0.0-1.0); Blood Urea Nitrogen 8 mg/dL (9-16); Calcium 10.7 mg/dL (8.4-10.2); Carbon Dioxide 28 mmol/L (22-29); Chloride 106 mmol/L (96-108); Estimated Glomerular Filt Rate > 60; Glucose Random 92 mg/dL (60-115); Sodium 142 mmol/L (135-145); Total Protein 7.6 g/dL (6.5-8.0)
[2024-01-18 13:05] LABS: TSH reflex Free T4 < 0.01 uIU/mL (0.32-4.0)
[2024-01-18 13:17] LABS: Folate 11.3 ng/mL (> or = 4.0); Vitamin B12 459 pg/mL (200-900)
[2024-01-18 14:34] LABS: Free T4 (Free Thyroxine) 2.09 ng/dL (0.71-1.85)
[2024-01-19 13:58] LABS: Lyme Abs Screen <0.90 index
== END 2024-01-18 11:37 | disposition home or self-care (01) ==
LOC: HO.LAB 11:36
PROVIDERS: PCP Physician Assistant; Visit Provider Physician Assistant
DX: I47.10 Supraventricular tachycardia, unspecified (principal); R63.4 Abnormal weight loss
CPT/HCPCS: 36415; 80053; 82607; 82746; 84439; 84443; 85025; 86617; 86618

== ENCOUNTER 2024-01-19 11:14 | Outpatient (REF) | payer BC, SELFPAY ==
[2024-01-19 12:57] LABS: Parathyroid Hormone Intact 22.6 pg/mL (8.7-77.1)
[2024-01-19 12:59] LABS: Magnesium 1.8 mg/dL (1.6-2.6); Phosphorus 5.1 mg/dL (2.7-4.5)
[2024-01-22 11:53] LABS: Calcium, Ionized 5.5 mg/dL (4.7-5.5)
[2024-01-22 16:53] LABS: Thyroid Stimulating Immunoglob 353 % baseline (<140)
[2024-01-24 05:14] LABS: VITAMIN D (1,25 OH) D3 19 pg/mL; Vit D (1,25-Dihydroxy) Total 19 pg/mL (18-72); Vitamin D (1,25 OH) D2 <8 pg/mL
== END 2024-01-19 11:15 | disposition home or self-care (01) ==
LOC: HO.LAB 11:14
PROVIDERS: PCP Physician Assistant; Visit Provider Physician Assistant
DX: E05.90 Thyrotoxicosis, unspecified without thyrotoxic crisis or storm (principal); E83.52 Hypercalcemia
CPT/HCPCS: 36415; 82330; 82652; 83520; 83735; 83970; 84100; 84445

== ENCOUNTER 2024-01-25 08:53 | Outpatient (AMB) | payer BC, SELFPAY ==
--- NOTE | 2024-01-25 08:55 | MHC.OFFVIS ---
Vital Signs 01/25/24 08:56 Height 5 ft 1.02 in Weight 146 lb 13.246 oz BMI 27.7 BP 112/82 Blood Pressure Location Rt brachial Position Sitting Pulse 127 H Pulse Source Pulse Oximeter Intake Visit Reasons: Thyrotoxicosis-confirmed Intake Note: New patient presents today for Thyrotoxicosis, referred by PCP. Patient reports she usually takes Vitamin D3 and Calcium 500 mg which is currently on hold, she is unsure if she should continue. 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 Became tachycardic in October 2023 Currently denies any dysphagia or hoarseness of voice. Denies sensation of swelling in the neck or difficulty breathing while lying flat. Denies any tenderness in the neck. Has palpitations, tremors, weight loss unintentionally frequent bowel movements. Denies any ocular complaints, blurred or double vision. Denies hair loss, dry skin, heat or cold intolerance, weight gain, confusion. Denies any history of head or neck irradiation. Denies any family history of thyroid cancer. Mom has hypothyroidism Not Had biopsy of nodules in the past. No kelp or seaweed consumption: Biotin consumption: No Thyroid US: Labs: [facility] Medical History (Updated 01/18/24 @ 13:31 by Sophia Tobias PA-C) Nondisplaced fracture of distal phalanx of left index finger, initial encounter for open fracture Injury of nail bed of finger of left hand PSVT (paroxysmal supraventricular tachycardia) Abnormal skin growth Eczema Arthritis Hypercholesteremia Sinusitis Simple cyst of kidney Generalized anxiety disorder Angiolipoma Lipoma HTN (hypertension) Surgical History History of appendectomy H/O adenoidectomy Hx of tonsillectomy Family History Father Arthritis HTN (hypertension) Mother Hypercholesteremia Brother Hypercholesteremia HTN (hypertension) Sister Heart disease Multiple sclerosis Maternal Grandmother Breast cancer Diabetes Heart disease Maternal Grandfather Diabetes Hypercholesteremia Alcoholism Other FH: mental illness Social History Housing: House Patient Tobacco Use Status: Former Tobacco user Cigarette Packs Per Day: 0.5 Years Smoked: 20 e-Cigarette/Vaping Use: Never Used Second Hand Smoke Exposure: Yes (past) service: No Current occupational status: employed 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 Thyroid gland measure 15 gms . No nodules or tenderness palpated. There is no cervical adenopathy palpated. Lungs CTA. Heart S1, S2 Reg R/R -M/R/G. Abdominal exam benign. Skin exam reveals absence of dryness or thyroid dermopathy or vitiligo. Nail exam reveals absence of thyroid acropachy or oncholysis. Neurologic exam reveals 2+ reflexes . Muscle Strength is 5/5 proximally. There are no tremors in upper extremities. Assessment & Plan Assessment & Plan (1) Hyperthyroidism: Code(s): E05.90 - Thyrotoxicosis, unspecified without thyrotoxic crisis or storm Category: Medical Plan: This is a 53-year-old white female with a history of hyperthyroidism due to Graves disease. She appears to be clinically and biochemically hyperthyroid Plan is to check repeat thyroid function studies including a free T3 for baseline. We will talk to patient about options of treatment including use of antithyroid medication 1st radioactive iodine for surgery. We decided start methimazole 15 mg q.d. and will recheck thyroid function studies, CBC and liver panel in 3 weeks. Went over side effects of methimazole with patient including but not limited to rash, liver toxicity and agranulocytosis Orders: Orders Thyroid Stimulating Hormone Today - Thyrotoxicosis, unspecified without thyrotoxic crisis or storm Free T4 (Free Thyroxine) 3 Weeks E0 - Thyrotoxicosis, unspecified without thyrotoxic crisis or storm Thyroid Stimulating Hormone 3 Weeks - Thyrotoxicosis, unspecified without thyrotoxic crisis or storm Complete Blood Count Auto Diff 3 Weeks - Thyrotoxicosis, unspecified without thyrotoxic crisis or storm Free T4 (Free Thyroxine) Today - Thyrotoxicosis, unspecified without thyrotoxic crisis or storm Triiodothyronine T3 Free Today - Thyrotoxicosis, unspecified without thyrotoxic crisis or storm Triiodothyronine T3 Free 3 Weeks - Thyrotoxicosis, unspecified without thyrotoxic crisis or storm Liver Panel 3 Weeks - Thyrotoxicosis, unspecified without thyrotoxic crisis or storm Medications: New metoprolol succinate ER 50 mg PO DAILY 30 tabs 3RF methimazole 15 mg (1.5 x 10 mg) PO DAILY 45 tabs 4RF Discontinued metoprolol succinate ER Discontinued Reason: Doctor's Order 25 mg PO DAILY 90 tabs 1RF Coding Level of Care Code New Pt Level 4 (03229) Diagnoses Hyperthyroidism
[2024-01-25 08:56] VITALS: BP 112/82; PULSE 127; BMI 27.7
== END 2024-01-25 09:53 | disposition home or self-care (01) ==
PROVIDERS: PCP Physician Assistant; Visit Provider Internal Medicine Endocrinology, Diabetes & Metabolism
DX: E05.90 Thyrotoxicosis, unspecified without thyrotoxic crisis or storm (principal)
CPT/HCPCS: 99204

== ENCOUNTER 2024-01-25 08:53 | Outpatient (REF) | payer BC, SELFPAY ==
[2024-01-25 11:11] LABS: MANUAL DIFF FLAG NO
[2024-01-25 11:36] LABS: Basophils Percent Auto 0.1 % (0-2); Eosinophils Absolute Auto 0.1 X10*3/uL (0.0-0.4); Hematocrit 40.1 % (37.0-47.0); Hemoglobin 14.2 g/dl (12.0-16.0); Imm Gran Abs Auto 0.02 X10*3/uL (0.00-0.03); Imm Gran Pct Auto 0.2 % (0.0-0.4); Lymphocytes Absolute Auto 1.1 X10*3/uL (1.2-4.9); Lymphocytes Percent Auto 12.6 % (20-40); Mean Corpuscular HGB Conc 35.4 g/dl (31.0-35.0); Mean Corpuscular Volume 81.8 fL (80.0-98.0); Mean Platelet Volume 10.3 fL (9.4-12.3); Monocytes Absolute Auto 0.9 X10*3/uL (0.1-1.2); Monocytes Percent Auto 9.9 % (2-11); Neutrophils Absolute Auto 6.7 x10*3/uL (2.0-8.3); Neutrophils Percent Auto 76.2 % (45-73); Platelet Count 310 X10*3/uL (160-400); Red Cell Distribution Width 14.2 % (11.0-16.0); White Blood Count 8.8 X10*3/uL (4.8-10.8)
[2024-01-25 12:34] LABS: Alanine Aminotransferase 19 U/L (0-31); Albumin Level 3.9 g/dL (3.5-5.0); Alkaline Phosphatase 69 U/L (39-117); Aspartate Amino Transferase 18 U/L (5-31); Bilirubin Direct 0.4 mg/dL (0.0-0.5); Bilirubin Total 1.2 mg/dL (0.0-1.0); Total Protein 7.7 g/dL (6.5-8.0)
[2024-01-25 12:41] LABS: Free T4 (Free Thyroxine) 2.51 ng/dL (0.71-1.85); Thyroid Stimulating Hormone < 0.01 uIU/mL (0.32-4.0)
[2024-01-26 12:13] LABS: Triiodothyronine T3 Free 18.7 pg/mL (2.3-4.2)
== END 2024-01-25 08:54 | disposition home or self-care (01) ==
LOC: HO.LAB 08:53
PROVIDERS: PCP Physician Assistant; Visit Provider Internal Medicine Endocrinology, Diabetes & Metabolism
DX: E05.90 Thyrotoxicosis, unspecified without thyrotoxic crisis or storm (principal)
CPT/HCPCS: 36415; 80076; 84439; 84443; 84481; 85025

== ENCOUNTER 2024-02-01 09:30 | Outpatient (REF) | payer BC, SELFPAY ==
[2024-02-01 13:14] LABS: Free T4 (Free Thyroxine) 1.61 ng/dL (0.71-1.85); Thyroid Stimulating Hormone < 0.01 uIU/mL (0.32-4.0)
== END 2024-02-01 09:31 | disposition home or self-care (01) ==
LOC: HO.WFDLDS 09:30
PROVIDERS: Visit Provider Internal Medicine Endocrinology, Diabetes & Metabolism
DX: E05.90 Thyrotoxicosis, unspecified without thyrotoxic crisis or storm (principal)
CPT/HCPCS: 36415; 84439; 84443; 84481

== ENCOUNTER 2024-02-04 15:13 | Outpatient (AMB) | payer BC, SELFPAY ==
--- NOTE | 2024-02-04 15:19 | A.OFFPC_ITS ---
Vital Signs 02/04/24 15:23 Height 5 ft 1 in Weight 144 lb 4 oz BMI 27.3 BP 118/70 Blood Pressure Location Lt brachial Position Sitting Pulse 79 Pulse Source Pulse Oximeter Temp 97.7 F Temp Source Temporal Artery Scan Pulse Oximetry (%) 97 Oxygen Delivery Method Room Air Intake Visit Reasons: bp and weight check Intake Note: patient here for follow up and check weight and blood pressure. 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 Is last menstrual period known: No Post menopausal: No Patient : No Allergies sulfamethoxazole [From Bactrim] Allergy (Intermediate, Verified 02/04/24 15:23) hives trimethoprim [From Bactrim] Allergy (Intermediate, Verified 02/04/24 15:23) hives Medication List - Last Reconciled 02/04/24 by Sophia Tobias PA-C levocetirizine (Xyzal) 5 mg PO DAILY lorazepam 0.5 mg PO DAILY PRN methimazole 20 mg (2 x 10 mg) PO DAILY metoprolol succinate ER 50 mg PO DAILY triamcinolone acetonide (Nasacort Allergy) 2 sprays intranasal DAILY Tobacco use date assessed: 01/14/24 Dental Screening Dental Screen Date: 01/14/24 HPI bp and weight check HPI Details Patient is a 53-year-old female with a significant past medical history of hyperthyroidism, hypertension, PSVT and chronic sinusitis presenting today for a follow up. Endo: Has been following with Dr. Arzate and is feeling significantly better on the methimazole. Last free T4 WNL. Still hyperthyroid. She states that since they have increased the dosage of the methimazole she has noticed her heart rate has been better. She is feeling better, tremors are gone. CV: Blood pressure today is 118/70 and pulse is 79. She is on metoprolol 50 mg daily and tolerating this well. HEENT: She has been on different antihistamines and nasal sprays for the last 6 months for this persistent sinusitis. She states it waxes and wanes in in tensity but always feels congested. No fevers or chills. Clear drainage. [facility] Medical History (Updated 01/18/24 @ 13:31 by Sophia Tobias PA-C) Nondisplaced fracture of distal phalanx of left index finger, initial encounter for open fracture Injury of nail bed of finger of left hand PSVT (paroxysmal supraventricular tachycardia) Abnormal skin growth Eczema Arthritis Hypercholesteremia Sinusitis Simple cyst of kidney Generalized anxiety disorder Angiolipoma Lipoma HTN (hypertension) Surgical History History of appendectomy H/O adenoidectomy Hx of tonsillectomy Family History Father Arthritis HTN (hypertension) Mother Hypercholesteremia Brother Hypercholesteremia HTN (hypertension) Sister Heart disease Multiple sclerosis Maternal Grandmother Breast cancer Diabetes Heart disease Maternal Grandfather Diabetes Hypercholesteremia Alcoholism Other FH: mental illness Social History Housing: House Patient Tobacco Use Status: Former Tobacco user Cigarette Packs Per Day: 0.5 Years Smoked: 20 e-Cigarette/Vaping Use: Never Used Second Hand Smoke Exposure: Yes (past) service: No Current occupational status: employed 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 Matias Angeles, Latisha Jarvis, Jay Lubin and colleagues, with an educational dwayne from [employer]. Physical exam (Primary Care) Vital Signs: Last Vital Signs Temp 97.7 F 02/04/24 15:23 Pulse 79 02/04/24 15:23 BP 118/70 02/04/24 15:23 Pulse Ox 97 02/04/24 15:23 Oxygen Delivery Method Room Air 02/04/24 15:23 BMI result Body Mass Index 27.3 Tobacco/Smoking Status: Tobacco use Status Tobacco use date assessed 01/14/24 02/04/24 15:22 Patient Tobacco Use Status Former Tobacco user 02/04/24 15:22 e-Cigarette/Vaping Use Never Used 02/04/24 15:22 Thrive Assessment: Date of Thrive Assessment Date Thrive assessed 01/14/24 02/04/24 15:22 Const Orientation/consciousness: patient oriented x3 HENMT Other: TMs WNL. Nasal mucosa erythematous and edematous. Clear drainage noted. No sinus tenderness present. Ears: hearing grossly normal bilaterally Neck Thyroid: Thyroid normal Lymphatic: no lymphadenopathy noted Resp Auscultation: clear to auscultation bilaterally Cardio Rate: regular rate Rhythm: regular rhythm Heart sounds: S1 normal heart sound present and S2 normal heart sound present GI Inspection: Yes normal to inspection Palpation (GI): Soft to palpation and Other GI palpation findings present (nontender, no cva tenderness) Auscultation: normoactive bowel sounds Rectal Exam - Female: deferred Skin General skin exam: no rashes or lesions noted Neuro General: patient oriented x3, gait normal and no focal motor deficits Results Reviewed Results Reviewed: Laboratory Tests 01/19/24 01/25/24 02/01/24 11:32 11:09 09:31 TSH < 0.01 L Free T4 2.51 H Free T3 18.7 H 7.0 H Thyroid Stim Immunoglob 353 H PTH Intact 22.6 TSH Receptor Ab 6.90 H 02/01/24 09:51 TSH < 0.01 L Free T4 1.61 Free T3 Thyroid Stim Immunoglob PTH Intact TSH Receptor Ab Assessment and Plan Assessment & Plan (1) Chronic sinusitis: Code(s): J32.9 - Chronic sinusitis, unspecified Qualifiers: Sinusitis location: maxillary Qualified Code(s): J32.0 - Chronic maxillary sinusitis Plan: ref to ent and allergy and immunology (2) Hyperthyroidism: Code(s): E05.90 - Thyrotoxicosis, unspecified without thyrotoxic crisis or storm Plan: improving. labs trending in right direction and she is feeling better. will continue to monitor (3) PSVT (paroxysmal supraventricular tachycardia): Code(s): I47.10 - Supraventricular tachycardia, unspecified Plan: hr has been wnl Orders: Referrals Ear/Nose/Throat Referral J32.0 - Chronic maxillary sinusitis Allergy & Immunology Referral J32.0 - Chronic maxillary sinusitis Coding Level of Care Code Est Pt Level 4 (80702) Diagnoses Chronic maxillary sinusitis J32.0 Sinusitis location: maxillary Hyperthyroidism E05.90 PSVT (paroxysmal supraventricular tachycardia) I47.10
[2024-02-04 15:23] VITALS: BP 118/70; PULSE 79; TEMP 36.5; O2SAT 97; BMI 27.3
== END 2024-02-04 16:07 | disposition home or self-care (01) ==
PROVIDERS: PCP Physician Assistant; Visit Provider Physician Assistant
DX: J32.0 Chronic maxillary sinusitis (principal); E05.90 Thyrotoxicosis, unspecified without thyrotoxic crisis or storm; I47.10 Supraventricular tachycardia, unspecified
CPT/HCPCS: 99214

== ENCOUNTER 2024-02-22 08:54 | Outpatient (REF) | payer BC, SELFPAY ==
[2024-02-22 11:12] LABS: MANUAL DIFF FLAG NO
[2024-02-22 11:18] LABS: Basophils Percent Auto 0.5 % (0-2); Eosinophils Absolute Auto 0.4 X10*3/uL (0.0-0.4); Eosinophils Percent Auto 5.5 % (0-4); Hematocrit 43.9 % (37.0-47.0); Hemoglobin 15.4 g/dl (12.0-16.0); Imm Gran Abs Auto 0.01 X10*3/uL (0.00-0.03); Imm Gran Pct Auto 0.2 % (0.0-0.4); Lymphocytes Absolute Auto 1.7 X10*3/uL (1.2-4.9); Lymphocytes Percent Auto 26.8 % (20-40); Mean Corpuscular HGB Conc 35.1 g/dl (31.0-35.0); Mean Corpuscular Hemoglobin 29.3 pg (27.0-33.0); Mean Corpuscular Volume 83.6 fL (80.0-98.0); Mean Platelet Volume 10.6 fL (9.4-12.3); Monocytes Absolute Auto 0.5 X10*3/uL (0.1-1.2); Monocytes Percent Auto 8.3 % (2-11); Neutrophils Absolute Auto 3.8 x10*3/uL (2.0-8.3); Neutrophils Percent Auto 58.7 % (45-73); Platelet Count 315 X10*3/uL (160-400); Red Blood Count 5.25 X10*6/uL (4.20-5.50); Red Cell Distribution Width 17.5 % (11.0-16.0); White Blood Count 6.4 X10*3/uL (4.8-10.8)
[2024-02-22 11:41] LABS: Alanine Aminotransferase 31 U/L (0-31); Albumin Level 3.9 g/dL (3.5-5.0); Alkaline Phosphatase 87 U/L (39-117); Aspartate Amino Transferase 21 U/L (5-31); Bilirubin Direct 0.4 mg/dL (0.0-0.5); Bilirubin Total 1.3 mg/dL (0.0-1.0); Total Protein 7.3 g/dL (6.5-8.0)
[2024-02-22 12:11] LABS: Free T4 (Free Thyroxine) 0.83 ng/dL (0.71-1.85); Thyroid Stimulating Hormone < 0.01 uIU/mL (0.32-4.0)
[2024-02-23 09:03] LABS: Triiodothyronine T3 Free 3.2 pg/mL (2.3-4.2)
== END 2024-02-22 08:55 | disposition home or self-care (01) ==
LOC: HO.WFDLDS 08:54
PROVIDERS: Visit Provider Internal Medicine Endocrinology, Diabetes & Metabolism
DX: E05.90 Thyrotoxicosis, unspecified without thyrotoxic crisis or storm (principal)
CPT/HCPCS: 36415; 80076; 84439; 84443; 84481; 85025

== ENCOUNTER 2024-03-17 15:03 | Outpatient (REF) | payer BC, SELFPAY ==
[2024-03-17 15:14] LABS: MANUAL DIFF FLAG NO
[2024-03-17 15:33] LABS: Basophils Absolute Auto 0.1 X10*3/uL (0.0-0.2); Basophils Percent Auto 0.6 % (0-2); Eosinophils Absolute Auto 0.2 X10*3/uL (0.0-0.4); Eosinophils Percent Auto 1.8 % (0-4); Hematocrit 45.3 % (37.0-47.0); Hemoglobin 16.2 g/dl (12.0-16.0); Imm Gran Abs Auto 0.04 X10*3/uL (0.00-0.03); Imm Gran Pct Auto 0.4 % (0.0-0.4); Lymphocytes Absolute Auto 1.9 X10*3/uL (1.2-4.9); Lymphocytes Percent Auto 18.7 % (20-40); Mean Corpuscular HGB Conc 35.8 g/dl (31.0-35.0); Mean Corpuscular Hemoglobin 30.8 pg (27.0-33.0); Mean Corpuscular Volume 86.1 fL (80.0-98.0); Mean Platelet Volume 10.1 fL (9.4-12.3); Monocytes Absolute Auto 0.8 X10*3/uL (0.1-1.2); Monocytes Percent Auto 7.5 % (2-11); Neutrophils Absolute Auto 7.1 x10*3/uL (2.0-8.3); Platelet Count 334 X10*3/uL (160-400); Red Blood Count 5.26 X10*6/uL (4.20-5.50); Red Cell Distribution Width 19.3 % (11.0-16.0)
[2024-03-17 17:03] LABS: Alanine Aminotransferase 30 U/L (0-31); Albumin Level 4.2 g/dL (3.5-5.0); Alkaline Phosphatase 112 U/L (39-117); Aspartate Amino Transferase 22 U/L (5-31); Bilirubin Direct 0.3 mg/dL (0.0-0.5); Total Protein 7.9 g/dL (6.5-8.0)
[2024-03-17 17:19] LABS: Free T4 (Free Thyroxine) 0.61 ng/dL (0.71-1.85); Thyroid Stimulating Hormone 0.43 uIU/mL (0.32-4.0)
[2024-03-18 06:58] LABS: Triiodothyronine T3 Free 2.4 pg/mL (2.3-4.2)
== END 2024-03-17 15:04 | disposition home or self-care (01) ==
LOC: HO.LAB 15:03
PROVIDERS: PCP Physician Assistant; Visit Provider Internal Medicine Endocrinology, Diabetes & Metabolism
DX: E05.90 Thyrotoxicosis, unspecified without thyrotoxic crisis or storm (principal)
CPT/HCPCS: 36415; 80076; 84439; 84443; 84481; 85025

== ENCOUNTER 2024-03-23 08:54 | Outpatient (AMB) | payer BC, SELFPAY ==
[2024-03-23 08:56] VITALS: BP 90/56; PULSE 69; BMI 28.9
--- NOTE | 2024-03-23 08:56 | A.OFFVIS_ITS ---
Vital Signs 03/23/24 08:56 Height 5 ft 1 in Weight 153 lb 0.013 oz BMI 28.9 BP 90/56 L Blood Pressure Location Lt brachial Position Sitting Pulse 69 Pulse Source Pulse Oximeter Intake Visit Reasons: f/u hyperthyroidism due to Graves DX Intake Note: Patient present today for Hyperthyroidism due to Graves DX. Accompanied by: Self / Same As Patient Allergies sulfamethoxazole [From Bactrim] Allergy (Intermediate, Verified 03/23/24 09:05) hives trimethoprim [From Bactrim] Allergy (Intermediate, Verified 03/23/24 09:05) hives Medication List - Last Reconciled 03/23/24 by Matias Arzate MD levocetirizine (Xyzal) 5 mg PO DAILY lorazepam 0.5 mg PO DAILY PRN methimazole 5 mg PO DAILY methimazole 20 mg (2 x 10 mg) PO DAILY metoprolol succinate ER 50 mg PO DAILY triamcinolone acetonide (Nasacort Allergy) 2 sprays intranasal DAILY HPI Comments Details: 53 YO F withwho is seen in consultation for hyperthyroidism at the request of PCP. Became tachycardic in October 2023 Currently denies any dysphagia or hoarseness of voice. Denies sensation of swelling in the neck or difficulty breathing while lying flat. Denies any tenderness in the neck. Has palpitations, tremors, weight loss unintentionally frequent bowel movements. Denies any ocular complaints, blurred or double vision. Denies hair loss, dry skin, heat or cold intolerance, weight gain, confusion. Denies any history of head or neck irradiation. Denies any family history of thyroid cancer. Mom has hypothyroidism Not Had biopsy of nodules in the past. No kelp or seaweed consumption: Biotin consumption: No Thyroid US: Labs: On methimazole 20 mg [facility] Medical History (Updated 01/18/24 @ 13:31 by Sophia Tobias PA-C) Nondisplaced fracture of distal phalanx of left index finger, initial encounter for open fracture Injury of nail bed of finger of left hand PSVT (paroxysmal supraventricular tachycardia) Abnormal skin growth Eczema Arthritis Hypercholesteremia Sinusitis Simple cyst of kidney Generalized anxiety disorder Angiolipoma Lipoma HTN (hypertension) Surgical History History of appendectomy H/O adenoidectomy Hx of tonsillectomy Family History Father Arthritis HTN (hypertension) Mother Hypercholesteremia Brother Hypercholesteremia HTN (hypertension) Sister Heart disease Multiple sclerosis Maternal Grandmother Breast cancer Diabetes Heart disease Maternal Grandfather Diabetes Hypercholesteremia Alcoholism Other FH: mental illness Social History Housing: House Patient Tobacco Use Status: Former Tobacco user Cigarette Packs Per Day: 0.5 Years Smoked: 20 e-Cigarette/Vaping Use: Never Used Second Hand Smoke Exposure: Yes (past) service: No Current occupational status: employed 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 Thyroid gland measure 15 gms . No nodules or tenderness palpated. There is no cervical adenopathy palpated. Lungs CTA. Heart S1, S2 Reg R/R -M/R/G. Abdominal exam benign. Skin exam reveals absence of dryness or thyroid dermopathy or vitiligo. Nail exam reveals absence of thyroid acropachy or oncholysis. Neurologic exam reveals 2+ reflexes . Muscle Strength is 5/5 proximally. There are no tremors in upper extremities. Assessment & Plan Assessment & Plan (1) Hyperthyroidism: Code(s): E0.90 - Thyrotoxicosis, unspecified without thyrotoxic crisis or storm Category: Medical Plan: This is a 53-year-old white female with a history of hyperthyroidism due to Graves disease. He is currently being treated on methimazole 20 mg . She appears to be clinically euthyroid with normal TSH and slightly low free T4 levels Plan is to have the patient alternate 20 mg with 15 mg of methimazole and then recheck thyroid function studies, liver enzymes and CBC in 4 weeks Orders: Orders Thyroid Stimulating Hormone 5 Weeks E05.90 - Thyrotoxicosis, unspecified without thyrotoxic crisis or storm Triiodothyronine T3 Free 5 Weeks E05.90 - Thyrotoxicosis, unspecified without thyrotoxic crisis or storm Complete Blood Count Auto Diff 5 Weeks E0 - Thyrotoxicosis, unspecified without thyrotoxic crisis or storm Liver Panel 5 Weeks - Thyrotoxicosis, unspecified without thyrotoxic crisis or storm Free T4 (Free Thyroxine) 5 Weeks - Thyrotoxicosis, unspecified without thyrotoxic crisis or storm Medications: New methimazole Alternate total of 20 mg with 15 mg every other day 5 mg PO DAILY 14 tabs 5RF Changed From methimazole 20 mg (2 x 10 mg) PO DAILY 60 tabs 4RF To methimazole Alternate 20 mg with 15 mg 20 mg (2 x 10 mg) PO DAILY 60 tabs 4RF Coding Level of Care Code Est Pt Level 3 (40790) Diagnoses Hyperthyroidism
== END 2024-03-23 09:25 | disposition home or self-care (01) ==
PROVIDERS: PCP Physician Assistant; Visit Provider Internal Medicine Endocrinology, Diabetes & Metabolism
DX: E05.90 Thyrotoxicosis, unspecified without thyrotoxic crisis or storm (principal)
CPT/HCPCS: 99213

== ENCOUNTER 2024-04-18 10:01 | Outpatient (REF) | payer BC, SELFPAY ==
[2024-04-18 11:11] LABS: MANUAL DIFF FLAG NO
[2024-04-18 11:49] LABS: Basophils Percent Auto 0.4 % (0-2); Eosinophils Absolute Auto 0.2 X10*3/uL (0.0-0.4); Eosinophils Percent Auto 2.3 % (0-4); Hematocrit 46.3 % (37.0-47.0); Hemoglobin 16.4 g/dl (12.0-16.0); Imm Gran Abs Auto 0.07 X10*3/uL (0.00-0.03); Imm Gran Pct Auto 0.9 % (0.0-0.4); Lymphocytes Absolute Auto 1.7 X10*3/uL (1.2-4.9); Mean Corpuscular HGB Conc 35.4 g/dl (31.0-35.0); Mean Corpuscular Hemoglobin 31.5 pg (27.0-33.0); Mean Platelet Volume 10.5 fL (9.4-12.3); Monocytes Absolute Auto 0.5 X10*3/uL (0.1-1.2); Monocytes Percent Auto 6.6 % (2-11); Neutrophils Percent Auto 66.8 % (45-73); Platelet Count 310 X10*3/uL (160-400); Red Cell Distribution Width 15.4 % (11.0-16.0); White Blood Count 7.5 X10*3/uL (4.8-10.8)
[2024-04-18 12:41] LABS: Anion Gap 14 (12-20); Blood Urea Nitrogen 12 mg/dL (9-16); Calcium 9.2 mg/dL (8.4-10.2); Carbon Dioxide 26 mmol/L (22-29); Chloride 104 mmol/L (96-108); Estimated Glomerular Filt Rate > 60; Sodium 140 mmol/L (135-145)
[2024-04-18 12:46] LABS: Vitamin D 25-OH Total 71.3 ng/mL (>30)
[2024-04-18 12:54] LABS: Alanine Aminotransferase 24 U/L (0-31); Alkaline Phosphatase 107 U/L (39-117); Aspartate Amino Transferase 20 U/L (5-31); Bilirubin Direct 0.4 mg/dL (0.0-0.5); Bilirubin Total 1.7 mg/dL (0.0-1.0); Free T4 (Free Thyroxine) 0.63 ng/dL (0.71-1.85); Thyroid Stimulating Hormone 7.75 uIU/mL (0.32-4.0); Total Protein 7.8 g/dL (6.5-8.0)
[2024-04-18 14:49] LABS: Appearance Urine Clear; Color Urine Yellow; Glucose Urine UA Negative (Negative); Leukocyte Esterase Urine Small (1+) (Negative); Nitrite Urine Negative (Negative); PH 5.5 (5.0-9.0); UMIC TRIGGER UA YES; Urine Blood Negative (Negative); Urine Ketones Negative (Negative); Urine Protein Negative (Neg-Trace)
[2024-04-18 14:54] LABS: Bacteria Urine 1+ (None Seen); Hyaline Casts Urine 0-2 /LPF (0-2); RBC Urine 0-2 /HPF (0-2)
[2024-04-19 07:38] LABS: Triiodothyronine T3 Free 2.5 pg/mL (2.3-4.2)
== END 2024-04-18 10:02 | disposition home or self-care (01) ==
LOC: HO.WFDLDS 10:01
PROVIDERS: Referring Provider Internal Medicine Nephrology; Visit Provider Internal Medicine Endocrinology, Diabetes & Metabolism
DX: N28.1 Cyst of kidney, acquired (principal); E05.90 Thyrotoxicosis, unspecified without thyrotoxic crisis or storm
CPT/HCPCS: 36415; 80051; 80076; 81001; 82306; 82310; 82565; 84439; 84443; 84481; 84520; 85025

== ENCOUNTER 2024-05-13 10:29 | Outpatient (REF) | payer BC, SELFPAY ==
[2024-05-13 13:59] LABS: MANUAL DIFF FLAG NO
[2024-05-13 14:02] LABS: Basophils Percent Auto 0.5 % (0-2); Eosinophils Absolute Auto 0.2 X10*3/uL (0.0-0.4); Eosinophils Percent Auto 3.1 % (0-4); Hematocrit 45.7 % (37.0-47.0); Hemoglobin 16.2 g/dl (12.0-16.0); Imm Gran Abs Auto 0.06 X10*3/uL (0.00-0.03); Imm Gran Pct Auto 0.8 % (0.0-0.4); Lymphocytes Percent Auto 26.4 % (20-40); Mean Corpuscular HGB Conc 35.4 g/dl (31.0-35.0); Mean Corpuscular Hemoglobin 32.1 pg (27.0-33.0); Mean Corpuscular Volume 90.7 fL (80.0-98.0); Mean Platelet Volume 10.6 fL (9.4-12.3); Monocytes Absolute Auto 0.5 X10*3/uL (0.1-1.2); Monocytes Percent Auto 7.3 % (2-11); Neutrophils Absolute Auto 4.6 x10*3/uL (2.0-8.3); Neutrophils Percent Auto 61.9 % (45-73); Platelet Count 299 X10*3/uL (160-400); Red Blood Count 5.04 X10*6/uL (4.20-5.50); Red Cell Distribution Width 14.4 % (11.0-16.0); White Blood Count 7.4 X10*3/uL (4.8-10.8)
[2024-05-13 14:25] LABS: Alanine Aminotransferase 24 U/L (0-31); Albumin Level 3.9 g/dL (3.5-5.0); Alkaline Phosphatase 99 U/L (39-117); Aspartate Amino Transferase 18 U/L (5-31); Bilirubin Direct 0.4 mg/dL (0.0-0.5); Bilirubin Total 1.4 mg/dL (0.0-1.0); Total Protein 7.6 g/dL (6.5-8.0)
[2024-05-13 14:35] LABS: Free T4 (Free Thyroxine) 0.78 ng/dL (0.71-1.85); Thyroid Stimulating Hormone 5.36 uIU/mL (0.32-4.0)
[2024-05-19 04:09] LABS: Triiodothyronine T3 Free 2.8 pg/mL (2.3-4.2)
== END 2024-05-13 10:30 | disposition home or self-care (01) ==
LOC: HO.WFDLDS 10:29
PROVIDERS: Visit Provider Internal Medicine Endocrinology, Diabetes & Metabolism
DX: E05.90 Thyrotoxicosis, unspecified without thyrotoxic crisis or storm (principal)
CPT/HCPCS: 36415; 80076; 84439; 84443; 84481; 85025

== ENCOUNTER 2024-06-13 10:57 | Outpatient (REF) | payer BC, SELFPAY ==
[2024-06-13 16:26] LABS: Alanine Aminotransferase 25 U/L (0-31); Albumin Level 4.1 g/dL (3.5-5.0); Alkaline Phosphatase 94 U/L (39-117); Aspartate Amino Transferase 22 U/L (5-31); Bilirubin Direct 0.4 mg/dL (0.0-0.5); Bilirubin Total 1.3 mg/dL (0.0-1.0); Total Protein 7.8 g/dL (6.5-8.0)
[2024-06-13 16:27] LABS: Free T4 (Free Thyroxine) 1.02 ng/dL (0.71-1.85); Thyroid Stimulating Hormone 1.97 uIU/mL (0.32-4.0)
== END 2024-06-13 10:58 | disposition home or self-care (01) ==
LOC: HO.LAB 10:57
PROVIDERS: PCP Physician Assistant; Visit Provider Internal Medicine Endocrinology, Diabetes & Metabolism
DX: E05.90 Thyrotoxicosis, unspecified without thyrotoxic crisis or storm (principal)
CPT/HCPCS: 36415; 80076; 84439; 84443; 84481

== ENCOUNTER 2024-07-21 14:09 | Outpatient (AMB) | payer BC, SELFPAY ==
--- NOTE | 2024-07-21 14:16 | MHC.PC.OV ---
Vital Signs 07/21/24 14:23 Height 5 ft 1 in Weight 161 lb 6 oz BMI 30.5 BP 108/66 Blood Pressure Location Rt brachial Position Sitting Pulse 68 Pulse Source Pulse Oximeter Pulse Oximetry (%) 98 Oxygen Delivery Method Room Air Intake Visit Reasons: 6 MONTH FOLLOW UP Intake Note: Six month follow up. Seeing Dr Arango for second opinion on thyroid. 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 Allergies sulfamethoxazole [From Bactrim] Allergy (Intermediate, Verified 07/21/24 14:17) hives trimethoprim [From Bactrim] Allergy (Intermediate, Verified 07/21/24 14:17) hives Medication List - Last Reconciled 07/21/24 by Sophia Tobias PA-C lorazepam 0.5 mg PO DAILY PRN methimazole 5 mg PO DAILY 30 days metoprolol succinate ER 50 mg PO DAILY triamcinolone acetonide (Nasacort Allergy) 2 sprays intranasal DAILY Tobacco use date assessed: 01/14/24 Dental Screening Dental Screen Date: 01/14/24 HPI 6 MONTH FOLLOW UP HPI Details Patient is a 53-year-old female with a significant past medical history of hyperthyroidism, hypertension, PSVT and chronic sinusitis presenting today for a follow up. Endo: Meds stable and TSH and WNL. Following with Howie and Rashmi. CV: Blood pressure today is 108/66. She is on metoprolol 50 mg daily and tolerating this well. No acute concerns today. Musculoskeletal: Gets intermittent aches and pains and would like to try Relafen as needed. [facility], [facility] Medical History (Updated 01/18/24 @ 13:31 by Sophia Tobias PA-C) Nondisplaced fracture of distal phalanx of left index finger, initial encounter for open fracture Injury of nail bed of finger of left hand PSVT (paroxysmal supraventricular tachycardia) Abnormal skin growth Eczema Arthritis Hypercholesteremia Sinusitis Simple cyst of kidney Generalized anxiety disorder Angiolipoma Lipoma HTN (hypertension) Surgical History History of appendectomy H/O adenoidectomy Hx of tonsillectomy Family History (Updated 07/21/24 @ 14:22 by Lianet Jeter CMA) Father Arthritis HTN (hypertension) Mother Hypercholesteremia Depression Anxiety Brother Hypercholesteremia HTN (hypertension) Sister Heart disease Multiple sclerosis Maternal Grandmother Breast cancer Diabetes Heart disease Maternal Grandfather Diabetes Hypercholesteremia Alcoholism Son Anxiety Daughter Anxiety Depression Other FH: mental illness Social History (Updated 07/21/24 @ 14:23 by Lianet Jeter [facility]) Housing: House Alcohol intake: current Comment: Wine a glass a day Patient Tobacco Use Status: Former Tobacco user Cigarette Packs Per Day: 0.5 Years Smoked: 20 e-Cigarette/Vaping Use: Never Used Second Hand Smoke Exposure: Yes (past) service: No Current occupational status: employed 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 1. Little interest or pleasure in doing things: not at all 2. Feeling down, depressed, or hopeless: not at all 3. Trouble falling or staying asleep, or sleeping too much: several days 4. Feeling tired or having little energy: several days 5. Poor appetite or overeating: not at all 6. Feeling bad about yourself - or that you are a failure or have let yourself or your family down: not at all 7. Trouble concentrating on things, such as reading the newspaper or watching television: not at all 8. Moving or speaking so slowly that other people could have noticed. Or the opposite - being so fidgety or restless that you have been moving around a lot more than usual: not at all 9. Thoughts that you would be better off or of hurting yourself in some way: not at all Total score: 2 Depression Screening Interpretation: Negative Depression Screening Done: Yes 30263 - PHQ-9 Billing: Yes Source: Developed by Drs. Matias Angeles, Latisha Jarvis, Jay Lubin and colleagues, with an educational dwayne from [employer]. Thrive Questionnaire Date Thrive assessed: 07/14/24 I am a: Patient What is your living situation today?: I have a steady place to live Within the past 12 months, did the food you bought not last and you didn't have the money to get more?: Never true Within the past 12 months, did you worry whether your food would run out before you got money to buy more?: Never true Do you have trouble paying for medicines?: No Do you have trouble getting transportation to medical appointments?: No Do you have trouble paying your heating and electricity bill?: No Do you have trouble taking care of your child, family member or friend?: No Do you have trouble with day-to-day activities such as bathing, preparing meals, shopping, managing finances, etc.?: No Are you currently unemployed and looking for a job?: No Are you interested in more education?: No Please select the resources that you would like help with: None Currently or been in a relationship where the following occur: No concerns reported THRIVE Score: 0 AUDIT C Alcohol Use Questionnaire (AUDIT-C) 1. How often do you have a drink containing alcohol?: 2-3 times a week 2. How many drinks containing alcohol do you have on a typical day when you are drinking?: 1 or 2 3. How often do you have six or more drinks on one occasion?: Never Total Score: 3 SUSANA-7 AMB Questionnaire SUSANA-7 Date SUSANA - 7 assessed: 07/21/24 Feeling nervous, anxious, or on edge: 1 = Several days Not being able to stop or control worryin = Several days Worrying too much about different things: 1 = Several days Trouble relaxin = Several days Being so restless that it is hard to sit still: 0 = Not at all Becoming easily annoyed or irritable: 1 = Several days Feeling afraid as if something awful might happen: 1 = Several days Total SUSANA-7 score (0-4 normal; 5-9 mild; 10-14 moderate; 15-21 severe): 6 Source: Developed by Drs. Matias Angeles, Latisha Jarvis, Jay Lubin and colleagues, with an educational dwayne from [employer]. SUSANA-7 Assessment Billing SUSANA-7 Assessment Tool: SUSANA-7 Assessment 09850 Physical exam (Primary Care) Vital Signs: Last Vital Signs Pulse 68 07/21/24 14:23 BP 108/66 07/21/24 14:23 Pulse Ox 98 07/21/24 14:23 Oxygen Delivery Method Room Air 07/21/24 14:23 BMI result Body Mass Index 30.5 Tobacco/Smoking Status: Tobacco use Status Tobacco use date assessed 01/14/24 07/21/24 14:19 Patient Tobacco Use Status Former Tobacco user 07/21/24 14:23 e-Cigarette/Vaping Use Never Used 07/21/24 14:23 PHQ-9: PHQ-9 Score PHQ-9: Total score 2 07/21/24 14:33 Depression Screening Interpretation: Negative Thrive Assessment: Date of Thrive Assessment Date Thrive assessed 07/14/24 07/21/24 14:19 Currently or been in a relationship where the following occur: No concerns reported Const Orientation/consciousness: patient oriented x3 HENMT Ears: hearing grossly normal bilaterally Neck Thyroid: Thyroid normal Lymphatic: no lymphadenopathy noted Resp Auscultation: clear to auscultation bilaterally Cardio Rate: regular rate Rhythm: regular rhythm Heart sounds: S1 normal heart sound present and S2 normal heart sound present GI Inspection: Yes normal to inspection Palpation (GI): Soft to palpation and Other GI palpation findings present (nontender, no cva tenderness) Auscultation: normoactive bowel sounds Rectal Exam - Female: deferred Skin General skin exam: no rashes or lesions noted Neuro General: patient oriented x3, gait normal and no focal motor deficits Coding Level of Care Code Est Pt Level 4 (37750) Diagnoses Hyperthyroidism E05.90 Primary hypertension I10 Hypertension type: primary hypertension Additional Codes SUSANA-7 Assessment Billing - SUSANA-7 Assessment Tool: SUSANA-7 Assessment 81550 ([id number]) PHQ-9 - 84806 - PHQ-9 Billing: Yes ([id number]) Assessment & Plan Assessment & Plan (1) Hyperthyroidism: Code(s): E05.90 - Thyrotoxicosis, unspecified without thyrotoxic crisis or storm Category: Medical Plan: Following a [facility] (2) HTN (hypertension): Code(s): I10 - Essential (primary) hypertension Category: Medical Qualifiers: Hypertension type: primary hypertension Qualified Code(s): I10 - Essential (primary) hypertension Plan: WNL. Continue current regimen Medications: New nabumetone 500 mg PO BID 60 tabs 0RF 30 days
[2024-07-21 14:23] VITALS: BP 108/66; PULSE 68; O2SAT 98; BMI 30.5
== END 2024-07-21 15:01 | disposition home or self-care (01) ==
PROVIDERS: PCP Physician Assistant; Visit Provider Physician Assistant
DX: E05.90 Thyrotoxicosis, unspecified without thyrotoxic crisis or storm (principal); I10 Essential (primary) hypertension

== ENCOUNTER → 2024-07-21 14:09 | Outpatient (BNVA) | payer BC, SELFPAY | PROVIDERS: PCP Physician Assistant; Visit Provider Physician Assistant | DX: E05.90 Thyrotoxicosis, unspecified without thyrotoxic crisis or storm (principal); I10 Essential (primary) hypertension | CPT/HCPCS: 96127 ==